=== PATIENT | female | born 1990 | race Two or more races ===

== ENCOUNTER 2020-09-25 19:27 | Observation (INO) | payer BC ==
[2020-09-25] MEDS ORDERED: LIDO:MAALOX 1:1 20 ML SINGLE DOSE. SWSW ONE (19:30)
[2020-09-25] MEDS ORDERED: ACETAMINOPHEN 325 MG TABLET. PO PRN (19:30)
[2020-09-25] MEDS ORDERED: IV RINGERS,LACTATED 1000ML 1,000 ML IV PRN (19:30)
[2020-09-25 20:23] LABS: BASO % 0 % (0-3); EOS % 0 % (0-3); HEMOGLOBIN 10.7 g/dL (12.0-15.5); LYMPH # 1.1 x10^3/uL (1.0-4.8); LYMPH % 8 % (24-48); MEAN CORPUSCULAR HEMOGLOBIN 28 pg (25-35); MEAN CORPUSCULAR HGB CONC 33 g/dL (31-37); MEAN CORPUSCULAR VOLUME 85 fL (79-100); MONO # 0.4 x10^3/uL (0.0-1.1); MONO % 3 % (0-9); NEUT # 12.5 x10^3/uL (1.8-7.7); NEUT % 89 % (31-73); PLATELET COUNT 301 x10^3/uL (140-400); RED BLOOD COUNT 3.76 x10^6/uL (3.50-5.40); RED CELL DISTRIBUTION WIDTH 13.3 % (11.5-14.5); WHITE BLOOD COUNT 14.1 x10^3/uL (4.0-11.0)
[2020-09-25 20:46] LABS: ALBUMIN 2.9 g/dL (3.4-5.0); ALBUMIN/GLOBULIN RATIO 0.7 (1.0-1.7); CALCIUM 8.9 mg/dL (8.5-10.1); CREATININE 0.7 mg/dL (0.6-1.0); GFR 97.6; POTASSIUM 3.6 mmol/L (3.5-5.1); TOTAL BILIRUBIN 0.2 mg/dL (0.2-1.0); TOTAL PROTEIN 7.2 g/dL (6.4-8.2)
--- NOTE | 2020-09-25 21:03 | RAD ---
CLINICAL HISTORY: Reason: severe upper right quadrant pain Gallbladder? / Spl. Instructions: / Histo ry: COMPARISON: None available. TECHNIQUE: Ultrasound of the upper abdomen was performed. FINDINGS: The liver measures 16.5 cm in length in the right mid clavicular line. The hepatic margin is smooth and the hepatic echogenicity is normal. There are no focal liver lesions. Flow seen within the nitesh l veins. Shadowing gallstones are seen within the gallbladder. There is no wall thickening or pericholecystic fluid. There is no pain with direct transducer pressure over the gallbladder. The common bile duct measures 0.4 cm. Pancreas is not well seen. The right kidney measures 10.6 cm in bipolar length. Normal renal cortical echogenicity. No focal ania al lesion. No hydronephrosis. Visualized portions of the abdominal aorta and inferior vena cava are unremarkable. There is no free fluid in the upper abdomen. IMPRESSION: Cholelithiasis without sonographic evidence for acute cholecystitis. Electronically signed by: Cornelio Bishop MD (09/25/2020 9:01 PM) [facility]
[2020-09-25 21:12] LABS: % BANDS 1 % (0-9); % LYMPHS 16 % (24-48); % MONOS 2 % (0-10); % SEGS 81 % (35-66); PLT ESTIMATE ADEQUATE (ADEQUATE)
== END 2020-09-25 21:59 | disposition home or self-care (01) ==
LOC: 3 SO LND 19:27
PROVIDERS: ADMIT Obstetrics & Gynecology; ATTEND Obstetrics & Gynecology
DX: O26.892 Other specified pregnancy related conditions, second trimester (principal); R10.11 Right upper quadrant pain; Z3A.25 25 weeks gestation of pregnancy
CPT/HCPCS: 36415; 59025; 76705; 80053; 85007; 85025; G0378; G0379